=== PATIENT | male | born 1955 | race Caucasian/White ===

== ENCOUNTER 2021-12-04 05:45 | Day surgery (SDC) | payer BC ==
[~2021-12-04 05:45] MED LIST: Sodium Chloride 0.9% 10 ML Syringe FLUSH SCH
[2021-12-04] MEDS ORDERED: Midazolam 1 MG/ML 2 ML SDV IV ONE ×3 (05:46→07:32)
[2021-12-04] MEDS ORDERED: fentaNYL 100 MCG/2 ML SDV IV ONE ×3 (05:46→07:32)
[2021-12-04] MEDS ORDERED: Sodium Chloride 0.9% 10 ML Syringe FLUSH PRN (06:00)
[2021-12-04] MEDS ORDERED: Dextrose 5%-0.45% NaCl 1,000 ML IV SCH (06:00)
[2021-12-04] MEDS ORDERED: Midazolam 1 MG/ML 2 ML SDV ONE (06:01)
[2021-12-04] MEDS ORDERED: fentaNYL 100 MCG/2 ML SDV ONE (06:01)
== END 2021-12-04 09:45 | disposition home or self-care (01) ==
LOC: DL.ENDO 05:45
PROVIDERS: ATTEND Internal Medicine Gastroenterology
DX: K21.00 Gastro-esophageal reflux disease with esophagitis, without bleeding (principal); K44.9 Diaphragmatic hernia without obstruction or gangrene; I10 Essential (primary) hypertension; D50.9 Iron deficiency anemia, unspecified; E78.5 Hyperlipidemia, unspecified; E66.09 Other obesity due to excess calories; Z90.89 Acquired absence of other organs; Z01.812 Encounter for preprocedural laboratory examination; Z20.822 Contact with and (suspected) exposure to COVID-19; Z68.29 Body mass index [BMI] 29.0-29.9, adult
CPT/HCPCS: 87077; J2250; J3010; J7042; U0002

== ENCOUNTER 2021-12-05 05:52 | Day surgery (SDC) | payer BC ==
[2021-12-05] MEDS ORDERED: Midazolam 1 MG/ML 2 ML SDV IV ONE ×7 (05:53→07:10)
[2021-12-05] MEDS ORDERED: fentaNYL 100 MCG/2 ML SDV IV ONE ×4 (05:53→07:12)
[2021-12-05] MEDS ORDERED: Midazolam 1 MG/ML 2 ML SDV ONE (06:11)
[2021-12-05] MEDS ORDERED: fentaNYL 100 MCG/2 ML SDV ONE (06:11)
[2021-12-05] MEDS ORDERED: Sodium Chloride 0.9% 10 ML Syringe FLUSH PRN (07:54)
[2021-12-05] MEDS ORDERED: Dextrose 5%-0.45% NaCl 1,000 ML IV SCH (08:00)
[2021-12-05] MEDS ORDERED: Sodium Chloride 0.9% 10 ML Syringe FLUSH SCH (09:00)
== END 2021-12-05 10:40 | disposition home or self-care (01) ==
LOC: DL.ENDO 05:52
PROVIDERS: ATTEND Internal Medicine Gastroenterology
DX: K63.5 Polyp of colon (principal); K57.30 Diverticulosis of large intestine without perforation or abscess without bleeding; I10 Essential (primary) hypertension; K21.9 Gastro-esophageal reflux disease without esophagitis; E78.5 Hyperlipidemia, unspecified; D64.9 Anemia, unspecified; E66.09 Other obesity due to excess calories; Z90.89 Acquired absence of other organs; Z68.30 Body mass index [BMI] 30.0-30.9, adult
CPT/HCPCS: J2250; J3010; J7042